=== PATIENT | male | born 1965 | race Caucasian/White ===

== ENCOUNTER 2019-11-05 01:02 | Emergency (ER) | payer MEDICAID ==
[~2019-11-05] VITALS: Ht 175.3 cm; Wt 89.0 kg
[2019-11-05 01:08] VITALS: BP 166/114
[2019-11-05] MEDS ORDERED: LORazepam 1MG TABLET PO ONE (01:30)
--- NOTE | 2019-11-05 02:00 | NUR ---
PT AMBULATED TO REGISTRATION DESK TO USE PHONE. STEADY GAIT.
--- NOTE | 2019-11-05 02:12 | NUR ---
PT OFFERED ATIVAN, PT REFUSED AND STATES "I DON'T WANT TO TAKE ANY MEDS, THAT MY PROBLEM, THE MEDS".
[2019-11-05] MEDS ORDERED: OLANZAPINE 10 MG TABLET PO SCH (09:00)
== END 2019-11-05 02:24 | disposition home or self-care (01) ==
LOC: ED 01:14
DX: F41.1 Generalized anxiety disorder (principal)
CPT/HCPCS: 99283